=== PATIENT | female | born 1965 | race Caucasian/White ===

== ENCOUNTER 2020-11-08 13:50 | Inpatient (IN) | payer SELFPAY ==
[2020-11-08] VITALS (117 sets, daily range): BP systolic 122; BP diastolic 64; PULSE 73; TEMP 97.8; O2SAT 92–96
[~2020-11-08] VITALS: Ht 167.6 cm; Wt 100.2 kg
[2020-11-08 14:29] LABS: BASO % 0.4 % (0.0-2.0); EOS % 0.1 % (0-4.0); GRAN # 7.9 (1.4-6.5); GRAN % 69.5 % (42.2-75.2); HEMATOCRIT 50.4 % (37.0-47.0); HEMOGLOBIN 17.2 g/dl (12.5-16.0); LYMPH # 2.7 (1.2-3.4); LYMPH % 23.4 % (20.0-51.0); MEAN CELL VOLUME 92 fl (80.0-100.0); MEAN CORPUSCULAR HEMOGLOBIN 31 pg (27.0-31.0); MEAN CORPUSCULAR HGB CONC 34 g/dl (33.0-37.0); MEAN PLATELET VOLUME 12.1 fl (7.4-10.4); MONO # 0.7 (0.1-0.6); MONO % 6.2 % (1.7-9.3); PLATELET COUNT 191 K/mm3 (130-400); RED BLOOD COUNT 5.48 M/mm3 (4.10-5.30); REDCELL DISTRIBUTION WIDTH-CV 12.5 % (11.5-14.5)
[2020-11-08 14:46] LABS: ALBUMIN 4.6 gm/dL (3.5-5.0); BILIRUBIN,TOTAL 0.6 mg/dL (0.0-1.0); C-REACTIVE PROTEIN 2.5 mg/dL (0.0-0.9); CALCIUM 9.9 mg/dL (8.4-10.2); CREATININE, serum 0.77 (0.52-1.25); POTASSIUM 5.5 mmol/L (3.4-5.0); TOTAL PROTEIN 8.1 gm/dL (6.4-8.2)
[2020-11-08 15:14] LABS: ARTERIAL BLD GAS O2 SATURATION 94.9 % (92-100); ARTERIAL BLD GAS TCO2 CT 21.6; ARTERIAL BLOOD GAS HCO3 20.5 meq/L (22-26); ARTERIAL BLOOD GAS PCO2 36.4 mmHg (35-45); ARTERIAL BLOOD GAS PO2 76.4 mmHg (80-100); ARTERIAL BLOOD GAS pH 7.37 (7.35-7.45)
--- NOTE | 2020-11-08 16:49 | NUR ---
PT ADMITTED FROM ED FOR HYPERGLYCEMIA. PT HAS INSULIN DRIP AT 3 UNITS/HR. PT IS AXOX4. PTS VSS. PTS SON BEDSIDE. PT ORIENTED TO ROOM AND FLOOR
[2020-11-08] MEDS ORDERED: CENTRUM1 TA1 (16:51)
[2020-11-08] MEDS ORDERED: ZYRTEC ALLERGY10 MG PO (16:51)
[2020-11-08 19:43] LABS: CALCIUM 8.4 mg/dL (8.4-10.2); CREATININE, serum 0.7 (0.52-1.25); POTASSIUM 3.5 mmol/L (3.4-5.0)
--- NOTE | 2020-11-08 20:00 | NUR ---
ALERT AND CALM, DENIES DISCOMFORT, INDEPENDENT WITH MOVING ABOUT ROOM, WILL BE OBSERVED,
[2020-11-08 21:07] LABS: CALCIUM 8.1 mg/dL (8.4-10.2); CREATININE, serum 0.58 (0.52-1.25); POTASSIUM 3.1 mmol/L (3.4-5.0)
[2020-11-08 21:15] LABS: COLLECTION METHOD CLEAN CATCH
[2020-11-08 21:25] LABS: PH 6 (5-8); SQUAMOUS EPITHELIAL 0-2 /hpf; URINE APPEARANCE Hazy; URINE BACTERIA None Seen /hpf; URINE BILIRUBIN Negative (NEGATIVE); URINE BLOOD 2+ (NEGATIVE); URINE COLOR Yellow; URINE GLUCOSE 3+ (NEGATIVE); URINE KETONE 1+ (NEGATIVE); URINE LEUKOCYTE ESTERASE Negative (NEGATIVE); URINE NITRATE Negative (NEGATIVE); URINE PROTEIN(semi-quant) Negative (NEGATIVE); URINE UROBILINOGEN Negative (NEGATIVE)
[2020-11-09] VITALS (131 sets, daily range): BP systolic 106–131; BP diastolic 58–81; PULSE 58–88; TEMP 97.8–98.7; O2SAT 89–97
[2020-11-09 00:10] LABS: CALCIUM 7.6 mg/dL (8.4-10.2); CREATININE, serum 0.44 (0.52-1.25); POTASSIUM 3.7 mmol/L (3.4-5.0)
[2020-11-09 02:04] LABS: CREATININE, serum 0.43 (0.52-1.25); POTASSIUM 3.6 mmol/L (3.4-5.0)
[2020-11-09 02:05] LABS: CALCIUM 7.6 mg/dL (8.4-10.2)
[2020-11-09 03:54] LABS: CALCIUM 7.5 mg/dL (8.4-10.2); CREATININE, serum 0.46 (0.52-1.25); POTASSIUM 3.7 mmol/L (3.4-5.0)
[2020-11-09 05:52] LABS: BASO % 0.3 % (0.0-2.0); EOS # 0.2 (0.0-0.7); EOS % 2.1 % (0-4.0); GRAN # 3.9 (1.4-6.5); GRAN % 43.2 % (42.2-75.2); HEMATOCRIT 40.1 % (37.0-47.0); LYMPH # 4.5 (1.2-3.4); MEAN CELL VOLUME 91 fl (80.0-100.0); MEAN CORPUSCULAR HEMOGLOBIN 32 pg (27.0-31.0); MEAN CORPUSCULAR HGB CONC 35 g/dl (33.0-37.0); MEAN PLATELET VOLUME 11.5 fl (7.4-10.4); MONO # 0.5 (0.1-0.6); MONO % 5.2 % (1.7-9.3); PLATELET COUNT 141 K/mm3 (130-400); RED BLOOD COUNT 4.41 M/mm3 (4.10-5.30); REDCELL DISTRIBUTION WIDTH-CV 12.6 % (11.5-14.5)
[2020-11-09 05:54] LABS: HEMOGLOBIN 13.9 g/dl (12.5-16.0)
[2020-11-09 06:01] LABS: CALCIUM 7.8 mg/dL (8.4-10.2); CREATININE, serum 0.45 (0.52-1.25)
[2020-11-09 07:47] LABS: CALCIUM 7.9 mg/dL (8.4-10.2); CREATININE, serum 0.44 (0.52-1.25); POTASSIUM 3.6 mmol/L (3.4-5.0)
--- NOTE | 2020-11-09 11:38 | NUR ---
El Teacher attended clinical rounds with the team. Patient is a new diabetic and does not currently have insurance. Hospitalist and Pharmacy discussed insulin regimin and plan will be for 70/30 insulin and metformin. During rounds, Pharmacy discussed cost of 70/30, which is around $25 a vial and patient states she can afford this. SW met with patient to discuss discharge planning. Patient lives with her two children, Thad (ph#[phone]) and Tahira. Patient sees Dr. Crocker for primary care and RN made appointment for next week for follow up as patient will likely discharge over the weekend. Patient utilizes [facility] for her medications. 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 Patient states she has been doing alright as she has income from her 's life insurance policy as he has . Patient states her children are also very supportive and make sure she has what she needs. SW discussed glucometer and supplies with patient who advised she will be able to afford these at [facility]. SW reviewed prices found online with patient who confirms she will have the money to obtain these items. Patient does not currently have Advance Directives but states this is something she is in the process of doing. Patient is and has three children: Rashard, Tahira, and Kd. Patient also has two step children: Sean and Montserratian. Discharge plan: Home with family.
--- NOTE | 2020-11-09 14:00 | NUR ---
Pt arrived to floor via w/c with ICU nurse Kd. Restng in bed, doing well, sons at bedside, will ocntinue to monitor.
--- NOTE | 2020-11-09 18:24 | NUR ---
Pt has done well this afternoon, sons at bedside, discussed giving own insulin and results of WBG and how to use the scale to determine needed amount. PT very agreeable to education. REsting well, denies needs, will give bedside shift report to nightshift nurse who will resume care.
--- NOTE | 2020-11-09 23:55 | NUR ---
ALERT AND OX3. ASSESSMENT AND VITALS COMPLETE. PT INJECTS SELF W INSULIN PER SLIDING SCALE NOVOLOG AND SCHEUDLED NOVOLIN. NEW ONSET OF DIABETES HOWEVER PT FATHER WAS A DIABETIC AND SHE ADM HIS SHOTS. EDUCATION PROVIDED ON SITE AND SWITCHING, CLEANING OF SKIN AND CARB INTAKE. PT RECEPTIVE AND APPREICTIVE. DENIES PAIN, SOA, DIZZY OR LIGHT HEADED. NEEDS MET
[2020-11-10 00:29] VITALS: BP 119/60; PULSE 76; TEMP 98.2
[2020-11-10 03:50] VITALS: BP 110/49; PULSE 75; TEMP 98.1
[2020-11-10 07:55] LABS: CREATININE, serum 0.44 (0.52-1.25); MAGNESIUM 2.2 mg/dL (1.6-2.3); POTASSIUM 4.6 mmol/L (3.4-5.0)
[2020-11-10 08:12] VITALS: BP 118/57; PULSE 79; TEMP 98.6
[2020-11-10] MEDS ORDERED: GLUCOPHAGE500 MG/TAB PO (09:43)
[2020-11-10] MEDS ORDERED: NYSTATIN OR100 MU/ML PO ×2 (09:46→09:50)
[2020-11-10] MEDS ORDERED: BASAGLAR K100 UNIT/1 SQ (09:48)
[2020-11-10] MEDS ORDERED: LANCETS MC (09:53)
[2020-11-10] MEDS ORDERED: FREESTYLE PREC1 EAC5 MC (09:53)
[2020-11-10] MEDS ORDERED: GLUCOSE TEST ST1 DEV MC (09:53)
--- NOTE | 2020-11-10 10:43 | NUR ---
First visit from the parking manager. No needs right now.
== END 2020-11-10 12:31 | disposition home or self-care (01) | DRG 638 ==
LOC: COL.ER 13:50 → ICU 15:43 → MEDICAL 11-09 14:37
PROVIDERS: Emergency Medicine; ADMIT Internal Medicine
DX: E11.00 Type 2 diabetes mellitus with hyperosmolarity without nonketotic hyperglycemic-hyperosmolar coma (NKHHC) (principal); E87.1 Hypo-osmolality and hyponatremia; B37.81 Candidal esophagitis; E87.5 Hyperkalemia; E86.0 Dehydration; F17.200 Nicotine dependence, unspecified, uncomplicated; Z90.710 Acquired absence of both cervix and uterus; Z85.43 Personal history of malignant neoplasm of ovary
CPT/HCPCS: 99223-AI; 99232-AI; 99239; J1650; J1815; J3480; J7030

== ENCOUNTER 2020-12-05 14:33 | Emergency (ER) | payer SELFPAY ==
[~2020-12-05] VITALS: Ht 167.6 cm; Wt 95.5 kg
[2020-12-05 14:40] VITALS: BP 126/69; TEMP 98.2
[2020-12-05 15:34] VITALS: PULSE 94
== END 2020-12-05 15:35 | disposition home or self-care (01) ==
LOC: COL.ER 14:33
DX: M79.605 Pain in left leg (principal); R60.0 Localized edema; R79.1 Abnormal coagulation profile; R00.0 Tachycardia, unspecified; E11.40 Type 2 diabetes mellitus with diabetic neuropathy, unspecified; E66.9 Obesity, unspecified; F17.200 Nicotine dependence, unspecified, uncomplicated; Z79.4 Long term (current) use of insulin
CPT/HCPCS: J1650

== ENCOUNTER → 2020-12-05 | Outpatient (CLI) | payer SELFPAY ==
[~2020-12-05] MED LIST: BASAGLAR K100 UNIT/1 SQ; CENTRUM1 TA1; FREESTYLE PREC1 EAC5 MC; GLUCOPHAGE500 MG/TAB PO; GLUCOSE TEST ST1 DEV MC; LANCETS MC; NYSTATIN OR100 MU/ML PO; ZYRTEC ALLERGY10 MG PO
== END ==
LOC: COL.LAB 12:00
DX: R60.0 Localized edema (principal)

== ENCOUNTER → 2020-12-06 | Outpatient (CLI) | payer SELFPAY | LOC: COL.VAS 07:40 | DX: I82.412 Acute embolism and thrombosis of left femoral vein (principal); I82.442 Acute embolism and thrombosis of left tibial vein; R60.0 Localized edema ==

== ENCOUNTER → 2021-03-21 | Outpatient (CLI) | payer SELFPAY | LOC: COL.VAS 13:15 | DX: I82.532 Chronic embolism and thrombosis of left popliteal vein (principal); I82.512 Chronic embolism and thrombosis of left femoral vein ==